=== PATIENT | male | born 1990 | race Two or more races ===

== ENCOUNTER 2017-06-30 22:10 | Emergency (ER) | payer MEDICAID, OTHER ==
[~2017-06-30] VITALS: Ht 180.3 cm; Wt 74.0 kg
[2017-06-30 22:20] VITALS: BP 125/80
== END 2017-07-01 00:29 | disposition home or self-care (01) ==
LOC: ED 23:59
DX: S16.1XXA Strain of muscle, fascia and tendon at neck level, initial encounter (principal); G89.11 Acute pain due to trauma; M54.5 Low back pain; M54.6 Pain in thoracic spine; J45.909 Unspecified asthma, uncomplicated; V89.2XXA Person injured in unspecified motor-vehicle accident, traffic, initial encounter; Y93.89 Activity, other specified; Y92.89 Other specified places as the place of occurrence of the external cause; Y99.8 Other external cause status
CPT/HCPCS: 72072; 72110; 72125; 99284

== ENCOUNTER 2018-05-20 09:21 | Emergency (ER) | payer SELFPAY ==
[~2018-05-20] VITALS: Ht 180.3 cm; Wt 72.6 kg
[2018-05-20 09:32] VITALS: BP 116/77
[2018-05-20] MEDS ORDERED: KETOROLAC 30 MG/1 ML IM ONE (10:00)
[2018-05-20] MEDS ORDERED: METHOCARBAMOL 750 MG TABLET PO ONE (10:00)
[2018-05-20] MEDS ORDERED: METHOCARBAMOL 750 MG TABLET ONE (10:01)
[2018-05-20] MEDS ORDERED: KETOROLAC 30 MG/1 ML ONE (10:01)
== END 2018-05-20 10:59 | disposition home or self-care (01) ==
LOC: ED 10:53
DX: S16.1XXA Strain of muscle, fascia and tendon at neck level, initial encounter (principal); S29.012A Strain of muscle and tendon of back wall of thorax, initial encounter; F17.210 Nicotine dependence, cigarettes, uncomplicated; J45.909 Unspecified asthma, uncomplicated; V49.59XA Passenger injured in collision with other motor vehicles in traffic accident, initial encounter; Y93.89 Activity, other specified; Y92.89 Other specified places as the place of occurrence of the external cause; Y99.8 Other external cause status
CPT/HCPCS: 72050; 72110; 96372; 99283; J1885